=== PATIENT | male | born 1950 | race Caucasian/White ===

== ENCOUNTER → 2023-06-16 | Outpatient (CLI) | payer MEDICARE ==
[2023-06-16 16:09] LABS: Calcium 9.3 mg/dL (8.7-10.3); Carbon Dioxide 27.2 mmol/L (21.6-31.8); Chloride 103 mmol/L (96-109); Glucose 85 mg/dL (70-110); Potassium 4.8 mmol/L (3.5-5.5); Sodium 141 mmol/L (135-145)
[2023-06-16 16:25] LABS: Basophils # (A) 0.03 X 10*3/uL (0.00-0.10); Basophils % (A) 0.4 %; Eosinophils # (A) 0.12 X 10*3/uL (0.04-0.35); Eosinophils % (A) 1.5 %; HCT 51.1 % (39.6-50.0); Lymphocytes % (A) 21.7 %; MCHC 33.3 d/dL (32.0-37.0); MCV 93.2 FL (80.0-97.0); Mean Platelet Volume 10.9 FL (9.5-12.2); Monocytes # (A) 0.48 X 10*3/uL (0.20-1.00); Monocytes % (A) 6.1 %; NRBC Per 100 WBC 0 X 10*3/uL (0.00-0.01); Neutrophils # (A) 5.49 X 10*3/uL (1.80-7.70); Platelet Count 190 X 10*3/uL (140-440); RBC 5.48 X 10*6/uL (4.40-5.60); RDW 11.8 % (11.5-14.5); WBC 7.84 X 10*3/uL (4.50-10.00)
== END | disposition home or self-care (01) ==
LOC: LABPAT 11:01
PROVIDERS: ATTEND Orthopaedic Surgery Hand Surgery
DX: Z01.818 Encounter for other preprocedural examination (principal); G56.01 Carpal tunnel syndrome, right upper limb; M65.331 Trigger finger, right middle finger
CPT/HCPCS: 36415; 80048; 85025; 93005

== ENCOUNTER 2023-06-25 08:26 | Day surgery (SDC) | payer MEDICARE ==
--- NOTE | 2023-06-23 09:05 | P.HPOR ---
History of Present Illness H&P Date: 06/23/23 Subjective: This is a 72 year old male that presents today for initial evaluation regarding a year history of progressively worsening right hand paresthesias in the index, middle and ring fingers and painful locking, catching and stiffness of the right middle finger. The patient has tried bracing with only relief of their night symptoms but he notes the numbness is very easily provoked when moving the wrist and hand. He denies any inciting event or neck pain and is an avid golfer and notes his symptoms are worse after golfing. Physical Examination: RUE: AIN/PIN/Radial/Ulnar/Median motor intact. Radial/Ulnar/Median SILT. 2+/4 Radial/Ulnar pulses palpated. 5/5 APB, 5/5 FDI. Negative Finkelsteins, negative CMC grind, positive Durkan's compression. TTP over right middle finger with locking/catching. Impression: 1.) Right carpal tunnel syndrome 2.) Right middle finger trigger finger. Plan: Diagnosis and treatment options were discussed with the patient. The patient has failed conservative treatment and would like to pursue a right endoscopic vs open carpal tunnel release and right middle finger A1 mj release. Risks and benefits of surgery including bleeding, infection, damage to surrounding tissue, need for further surgery, possible need to convert to open procedure, residual numbness were discussed and the patient wished to go forward with surgery. -Bashir Puga DO Orthopedic Hand/Upper Extremity Surgeon Past Medical History Past Medical History: Osteoarthritis (OA) Additional Past Medical History / Comment(s): lower back pain. rt wrist and hand pain. History of Any Multi-Drug Resistant Organisms: None Reported Past Surgical History: Cholecystectomy, Orthopedic Surgery Additional Past Surgical History / Comment(s): colonoscopy. 2 rt knee sx. 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 lung cancer Medications and Allergies Home Medications Medication Instructions Recorded Confirmed Type Acetaminophen [Tylenol Extra 500 mg PO DAILY 06/20/23 06/20/23 History Strength] Meloxicam 7.5 mg PO DAILY PRN 06/20/23 06/20/23 History Unk Fish Oil 1 tab PO DAILY 06/20/23 06/20/23 History Unk Multiu Vitamin 1 tab PO DAILY 06/20/23 06/20/23 History Allergies Allergy/AdvReac Type Severity Reaction Status Date / Time aspirin Allergy Rash/Hives Verified 06/20/23 15:18 cephalexin [From Keflex] Allergy Rash/Hives Verified 06/20/23 15:18 codeine Allergy Rash/Hives Verified 06/20/23 15:18 cortisone Allergy Rash/Hives Verified 06/20/23 15:18 ibuprofen [From Motrin] Allergy Rash/Hives Verified 06/20/23 15:18 sulfamethoxazole Allergy Rash/Hives Verified 06/20/23 15:18 [From Bactrim] trimethoprim [From Bactrim] Allergy Rash/Hives Verified 06/20/23 15:18 Physical Examination Osteopathic Statement: *. No significant issues noted on an osteopathic structural exam other than those noted in the History and Physical/Consult.
[~2023-06-25 08:26] MED LIST: LACTATED RINGERS 1,000 ML IV SCH; LIDOCAINE 1% (10MG/ML) FOR IV START INTRADERMA PRN; ONDANSETRON 4 MG/2 ML VIAL IVP ONE; Pre Op ABX Message 1 EACH MISC MISCELLANE ONE; fentaNYL (PF) 50 MCG/ML 2 ML AMP IV PRN
[2023-06-25 09:51] VITALS: TEMP 97.2
[2023-06-25] MEDS ORDERED: MIDAZOLAM 2 MG/2 ML VIAL ONE (11:18)
[2023-06-25] MEDS ORDERED: PROPOFOL 10 MG/ML 20 ML VIAL IV ONE (11:18)
[2023-06-25] MEDS ORDERED: LIDOCAINE 1% INJ 10MG/ML (20 ML MDV) ONE (11:18)
[2023-06-25] MEDS ORDERED: fentaNYL (PF) 50 MCG/ML 2 ML AMP ONE (11:18)
[2023-06-25] MEDS ORDERED: LIDOCAINE 1% INJ 10MG/ML (20 ML MDV) SQ ONE (11:26)
[2023-06-25] MEDS ORDERED: BUPIVACAINE (PF) 0.5% 30 ML VIAL SQ ONE (11:26)
[2023-06-25] MEDS ORDERED: LIDOCAINE 2% INJ 20 MG/ML SQ ONE (11:26)
--- NOTE | 2023-06-25 11:45 | P.OP ---
Date of Procedure: 06/25/23 Preoperative Diagnosis: 1.) Right carpal tunnel syndrome 2.) Right middle finger trigger finger Postoperative Diagnosis: 1.) Right carpal tunnel syndrome 2.) Right middle finger trigger finger Procedure(s) Performed: 1.) Right endoscopic carpal tunnel release 2.) Right middle finger trigger finger A1 mj release Anesthesia: MAC Surgeon: Bashir Puga Mapper #1: Rodolfo Arango Estimated Blood Loss (ml): 0 Pathology: none sent Condition: stable Disposition: PACU Description of Procedure: This is a 72 year old male who presents today for a right endoscopic carpal tunnel release and right middle finger A1 mj release after having failed conservative treatment in the past. Risks and benefits of surgery were discussed with the patient including bleeding, damage to surrounding tissue, infection, need to convert to open procedure, need for further surgery as well as risks of anesthesia including pulmonary embolism and even and the patient wished to proceed with surgical intervention. The patients was seen in the pre-operative area by myself. Consent and H&P were completed and updated. The correct extremity was marked in the pre-operative area by myself and all other questions were answered. Operative Narrative: The patient was brought to the operating room by the department of anesthesia. They remained on the portable stretcher and a rolling hand table was brought to the side of the operative extremity. Pre-operative time out was performed indicating the correct patient, procedure and laterality. All in the room agreed. The patient was then drifted off to sleep by the department of anesthesia. MAC anesthesia was utilized and a 50:50 mixture of 1% Lidocaine and 0.5% bupivacaine was injected into the subcutaneous tissues of the palmar skin, 8ccs total. A nonsterile tourniquet was then applied to the operative extremity and the right upper extremity was then prepped and draped in normal sterile fashion. The operative extremity was the exsanguinated with an esmarch bandage and the tourniquet was inflated to 250mmHg. 15 blade scalpel was utilized to make a transverse incision on the palmar skin just ulnar to the palmaris longus tendon at the level of the distal wrist crease. Ragnell retractor was then placed radially and blunt dissection was performed to reveal the distal forearm fascia. This was lifted with fine Estrada pick ups and Littler tenotomy scissors were then used to open the forearm fascia transversely and a double skin hook was then placed. Hamate finder was placed into the carpal tunnel and then sequential sized dilators were inserted followed by the synovial elevator to separate the flexor tenosynovium from the undersurface of the transverse carpal ligament and a washboard texture was felt. The MicroAire endoscopic carpal tunnel release system gun was the then inserted into the carpal tunnel hugging the deep portion of the transverse carpal ligament in line with the base of the ring finger. Transverse fibers of the ligament were directly visualized. Pressure was applied on the palm to reveal the distal extent of the transverse carpal ligament. The blade was then deployed and the distal half of the transverse carpal ligament was released. The scope was then brought distal again and remaining transverse fibers were incised with the blade. The proximal half of the transverse carpal ligament was then divided and again the scope was advanced distal and remaining transverse fibers were incised with the blade. The radial and ulnar leaflets were directly visualized and mobile consistent with complete release. Tenotomy scissors were then utilized to release the remaining distal forearm fascia under direct visualization taking care to preserve the palmar cutaneous branch of the median nerve. Skin closure was performed with interrupted 4-0 nylon suture. Oblique incision was made at the base of the middle finger finger. Blunt dissection was taken down to the level of the A1 mj. Ragnell retractors were placed both radially and ulnarly to protect neurovascular bundles. Littler tenotomy scissors were then used to release the A1 mj from proximal to distal under direct visualization. Proximal fascial attachments were released. The tendon was then taken through range of motion and no locking or catching was appreciated. The wound was then closed with interrupted 4-0 nylon sutures in a horizontal mattress fashion. Sterile dressing was applied consisting 4x4s, Webril, and an greg bandage. Tourniquet was let down and the hand immediately was well perfused. The patient was then woken by the department of anesthesia and transferred to PACU in stable condition. Rodolfo CARMEN was present for the case in its entirety and assisted in major portions of the case and protection of vital neurovascular structures. Bashir Puga D.O. Orthopedic Hand/Upper Extremity Surgeon
[2023-06-25 11:56] VITALS: RESP 14
[2023-06-25 12:20] VITALS: BP 135/67; PULSE 68
== END 2023-06-25 12:28 | disposition home or self-care (01) ==
LOC: OR 08:26
PROVIDERS: ATTEND Orthopaedic Surgery Hand Surgery
DX: G56.01 Carpal tunnel syndrome, right upper limb (principal); M65.331 Trigger finger, right middle finger; M19.90 Unspecified osteoarthritis, unspecified site; Z98.890 Other specified postprocedural states; Z88.1 Allergy status to other antibiotic agents; Z88.6 Allergy status to analgesic agent; Z88.5 Allergy status to narcotic agent; Z88.8 Allergy status to other drugs, medicaments and biological substances; Z88.2 Allergy status to sulfonamides; Z79.1 Long term (current) use of non-steroidal anti-inflammatories (NSAID); Z79.899 Other long term (current) drug therapy
CPT/HCPCS: 29848; 26055; J2001 ×2; J2250; J2405; J3010; J2704; J0665

== ENCOUNTER → 2024-02-17 | Outpatient (CLI) | payer MEDICARE | END | disposition home or self-care (01) | LOC: LABPAT 15:40 | PROVIDERS: ATTEND Orthopaedic Surgery | DX: Z01.812 Encounter for preprocedural laboratory examination (principal); M17.12 Unilateral primary osteoarthritis, left knee; Z22.322 Carrier or suspected carrier of Methicillin resistant Staphylococcus aureus | CPT/HCPCS: 87070 ==

== ENCOUNTER 2024-03-22 05:44 | Day surgery (SDC) | payer MEDICARE ==
[~2024-03-22 05:44] MED LIST changes: -LACTATED RINGERS 1,000 ML IV SCH; -LIDOCAINE 1% (10MG/ML) FOR IV START INTRADERMA PRN; -ONDANSETRON 4 MG/2 ML VIAL IVP ONE; +TRANEXAMIC 1,000 MG/100ML-NACL 1,000 MG in SALINE 1 100ML.BAG IVPB PRN; -fentaNYL (PF) 50 MCG/ML 2 ML AMP IV PRN
[2024-03-22] MEDS: IV FLUID CONTINUATION 1,000 ML IV ONE (06:19)
--- NOTE | 2024-03-22 06:45 | HP ---
HISTORY AND PHYSICAL DATE OF SCHEDULED SURGERY: 03/22/2004. HISTORY OF PRESENT ILLNESS: Yandel Church is a 73-year-old gentleman, seen with symptomatic left knee osteoarthritis. Options for treatment were discussed. He elected to proceed with left total knee arthroplasty. Consent was obtained. Medical clearance was provided by Dr. Hemalatha Adams. PAST MEDICAL HISTORY: Hypertension. PAST SURGICAL HISTORY: Knee arthroscopy, cholecystectomy. DAILY MEDICATIONS: 1. Multivitamin. 2. Tylenol. ALLERGIES: Aspirin, Bactrim, codeine, cortisone, Keflex. SOCIAL HISTORY: Denies tobacco use. PHYSICAL EVALUATION OF THE LEFT KNEE: Range of motion is -5/6 to 120 degrees. Mild effusion. Tenderness in medial joint line. Crepitance along the medial patellofemoral compartments with range of motion. There is a genu varum deformity. Ligaments stable. Hip rotation without pain. Distal neurovascular exam is intact. IMAGING STUDIES: Radiographs of the left knee reveal severe osteoarthritic changes. IMPRESSION: Left knee osteoarthritis. PLAN: Left total knee arthroplasty. MMODL / IJN: [id number] /
[2024-03-22 06:49] VITALS: BP 168/77; PULSE 97; RESP 16; TEMP 97.7
[2024-03-22] MEDS: ONDANSETRON 4 MG/2 ML VIAL IVP STA (06:50)
[2024-03-22] MEDS: ACETAMINOPHEN TAB 500 MG TAB PO PRN (06:50)
[2024-03-22] MEDS ORDERED: LACTATED RINGERS 1,000 ML BAG IV STA (06:51)
[2024-03-22] MEDS: DEXAMETHASONE SOD PHOSPHATE 4 MG/ML 1 ML VIAL IVP STA (06:52)
[2024-03-22] MEDS: MIDAZOLAM 2 MG/2 ML VIAL IVP ONE (07:05)
[2024-03-22] MEDS ORDERED: ePHEDrine 50 MG/ML 1 ML VIAL ONE (07:25)
[2024-03-22] MEDS ORDERED: SODIUM CHLORIDE 0.9% (PF) 10 ML VIAL ONE (07:25)
[2024-03-22] MEDS ORDERED: GLYCOPYRROLATE 0.2 MG/ML 2 ML VIAL ONE (07:25)
[2024-03-22] MEDS ORDERED: WATER FOR INJECTION, STERILE 10 ML VIAL IV ONE (07:25)
[2024-03-22] MEDS ORDERED: LIDOCAINE 1% INJ 10MG/ML (20 ML MDV) ONE (07:25)
[2024-03-22] MEDS ORDERED: PROPOFOL 10 MG/ML 20 ML VIAL IV ONE (07:25)
[2024-03-22] MEDS ORDERED: TRANEXAMIC 1,000 MG/100ML-NACL PREMIX BAG ONE (07:25)
[2024-03-22] MEDS ORDERED: SUCCINYLCHOLINE CHLORIDE 200 MG/10 ML VIAL IV ONE (07:25)
[2024-03-22] MEDS ORDERED: MIDAZOLAM 2 MG/2 ML VIAL ONE (07:25)
[2024-03-22] MEDS ORDERED: ROPIVACAINE 5 MG/ML 30 ML VIAL ONE (07:25)
[2024-03-22] MEDS ORDERED: NEOSTIGMINE 1 MG/ML 10 ML VIAL ONE (07:25)
[2024-03-22] MEDS ORDERED: fentaNYL (PF) 50 MCG/ML 2 ML AMP ONE (07:25)
[2024-03-22] MEDS ORDERED: ROCURONIUM 10 MG/ML (5 ML VIAL) IV ONE (07:25)
[2024-03-22] MEDS ORDERED: LACTATED RINGERS 1,000 ML BAG ONE (07:29)
[2024-03-22] MEDS ORDERED: ceFAZolin 10 GM VIAL IVPB ONE (07:29)
[2024-03-22] MEDS ORDERED: SODIUM CHLORIDE 0.9% 100 ML BAG IV ONE (07:29)
[2024-03-22] MEDS: ceFAZolin 1,000 MG in SODIUM CHLORIDE 0.9% 1,000 ML IRRIGATION ONE (07:51)
[2024-03-22] MEDS ORDERED: HYDROmorphone 0.5 MG/0.5 ML SYRINGE ONE (10:08)
[2024-03-22] MEDS ORDERED: HYDROcodone/APAP 5-325MG 1 EACH TAB ONE (10:44)
--- NOTE | 2024-03-22 11:36 | OP ---
OPERATIVE REPORT DATE OF SERVICE : 03/22/2024 PREOPERATIVE DIAGNOSIS: Left knee osteoarthritis. POSTOPERATIVE DIAGNOSIS: Left knee osteoarthritis. PROCEDURE: Left total knee arthroplasty. ANESTHESIA: General. ESTIMATED BLOOD LOSS: 35 mL. SHIPFITTERS SUPERVISOR: NELLA Small. IMPLANTS UTILIZED: 1. DePuy Attune size 6 left cruciate-retaining cemented femur. 2. DePuy Attune size 6 cemented fixed base tibial base plate. 3. DePuy Attune size 6 cruciate retaining, fixed bearing, 5 mm polyethylene tibial insert. 4. Depuy Attune 38 mm All-polyethylene patella. INDICATIONS FOR PROCEDURE: Mr. Yandel Church is a 73-year-old gentleman seen with symptomatic left knee osteoarthritis. After having treatment options discussed, he elected to proceed with left total knee arthroplasty. DESCRIPTION OF PROCEDURE: The patient was taken to the operative suite after having undergone regional blocks by Department of Anesthesia to include adductor canal catheter and iPACK block. He was taken to the operative suite. He underwent general anesthetic by the Department of Anesthesia. He received preoperative IV antibiotics in terms of 2 g of Kefzol, and 1 g of TXA. A well-padded tourniquet was placed in the proximal left thigh and left lower extremity was prepped and draped in normal sterile orthopedic fashion. Extremity was elevated. Tourniquet was insufflated to 300. I made a standard anterior incision sharply through skin and dissected down to the extensor mechanism. A medial arthrotomy was made. The patella was everted. Knee flexed and noted severe osteoarthritic changes. I made an intramedullary drill hole to the distal femur. Distal femoral guide was now placed and distal femoral cut was made. We now placed our proximal tibial guide into position. Retractors were placed around the proximal tibia. A proximal tibial cut was made. We now placed our femoral sizing guide. Appropriate drill holes and pins were placed. We sized it to a size 6. The 4-in-1 cutting block was now placed over the pins and appropriate cuts were made of the distal femur. We now made appropriate box cut for our femoral component. We now removed any residual meniscal tissue, performed a medial release. I now placed trial components in position. I took the knee through full range of motion, had good range of motion with good stability. We now marked off the appropriate rotation of the tibia, drilled lug nut holes through distal femoral component. Trial components were now removed. We now placed our tibial guide along the proximal tibia and appropriate keel punch holes were made. We now irrigated the wound out copiously with mechanical irrigation. Electrocautery was used along the posterior capsular area. We now irrigated the wound out via pulse lavage mechanical irrigation. The methylmethacrylate was now mixed on the back table. All appropriate components were opened. Once the methylmethacrylate had begun to get doughy, we placed along the proximal tibia and along the tibial component, we tapped down methylmethacrylate and I inserted my tibial polyethylene component. We now cemented down the femoral component, removing excess methylmethacrylate. I took the knee through full extension, back into flexion, making sure we removed excess methylmethacrylate. We now cemented down our patellar component and secured with a towel clamp. The knee was held in full extension with the towel clamp in position until almost perfectly it had hardened. Once it hardened, the towel clamp was removed. The tourniquet was released. We used electrocautery to achieve additional hemostasis. The wound was irrigated. I took the knee through range of motion with good stability. The extensor mechanism was now repaired with #1 Ethibond. Subcutaneous soft tissue repaired with 2-0 Vicryl. The skin was repaired with a running subcuticular suture augmented with skin glue. Sterile dressings were applied followed by a loose Sai bandage. The patient was awakened, transferred to bed in recovery and stable condition having tolerated the procedure well. NELLA Small assisted in all aspects of this complex procedure. MMODL / IJN: [id number] /
--- NOTE | 2024-04-09 15:51 | OP ---
OPERATIVE REPORT DATE OF SERVICE : 03/22/2024 PREOPERATIVE DIAGNOSIS: Left knee osteoarthritis. POSTOPERATIVE DIAGNOSIS: Left knee osteoarthritis. PROCEDURE PERFORMED: Left total knee arthroplasty. TALLOW MAKER: NELLA Landa. ANESTHESIA: General. ESTIMATED BLOOD LOSS: 35 mL. IMPLANTS UTILIZED: 1. DePuy ATTUNE size 6 left cruciate-retaining femur. 2. DePuy ATTUNE size 6 cemented tibial baseplate. 3. DePuy ATTUNE size 6 cruciate retaining, fixed bearing, 5 mm polyethylene tibial insert. 4. DePuy ATTUNE 38 mm all-polyethylene cemented patella. INDICATIONS: A 73-year-old gentleman seen with symptomatic left knee osteoarthritis. After having treatment options discussed, he elected to proceed with left total knee arthroplasty. Consent regarding the procedure was obtained. DESCRIPTION OF PROCEDURE: The patient was taken to the operative suite, underwent a general anesthetic by the Department of Anesthesia. He received preoperative IV antibiotics and TXA. A well- padded tourniquet was placed in proximal left thigh. The left lower extremity was prepped and draped in normal sterile orthopedic fashion. The extremity was elevated, tourniquet was insufflated to 300. I now made a standard anterior incision sharply through the skin and dissected down to the extensor mechanism. A medial arthrotomy was performed. The knee was flexed and the patella was everted. I noted advanced osteoarthritis. Retractors were positioned. Distal femoral cutting jig was positioned. Distal femoral cut was made. We now placed our proximal tibial cutting jig in the position and a proximal tibial cut was made. We placed our femoral sizing guide and then placed a 4-in-1 block off the distal femur and created our appropriate 4- in-1 cuts off the distal femur. I now removed any residual meniscal tissue and performed appropriate releases. Trial components were now placed into the femur and tibia and polyethylene trial component. The knee was taken through a full range of motion with good range of motion and good overall stability. The patella was everted, and I made a flush cut with patella quad tendon. We now trialed our appropriate size patellar component, tracked nicely. Appropriate drill holes were made through the patella and the distal femur lug holes. We now removed all trial components. We created our keel punch hole through the proximal tibia. We now irrigated the wound out copiously with mechanical irrigation, dried it out thoroughly. We now cemented down our tibial tray, removing any excess methylmethacrylate, inserted our tibial polyethylene component, I now cemented down the femoral component, removing excess methylmethacrylate. I took the knee into full extension back into flexion, making sure I removed any excess methylmethacrylate. We then cemented now our patellar component, used a clamp to secure it. We now held in position while the methylmethacrylate had hardened. Once it hardened, the patellar clamp was removed. We took the knee through range of motion, noted good range of motion and good stability. The tourniquet was released. I achieved additional hemostasis via electrocautery. I now irrigated the wound out copiously with mechanical irrigation. The extensor mechanism was repaired with #1 Ethibond. Subcutaneous and soft tissues were repaired with Vicryl followed by skin repair using subcuticular suture augmented with skin glue. Sterile dressings were applied, followed by a loose Sai bandage. The patient was awakened and transferred to the recovery in stable condition. NELLA Landa, assisted in all aspects of this complex procedure. MMTERRYL / ARPANN: [id number] /
--- NOTE | 2024-04-28 15:19 | XR ---
EXAMINATION TYPE: XR knee limited LT DATE OF EXAM: 04/04/2024 COMPARISON: No comparison available on downtime PACS. HISTORY: Postop knee replacement TECHNIQUE: 2 view left knee FINDINGS: Tibial and femoral components have been placed. Postsurgical soft tissue changes are eviden t. No acute fractures or dislocations evident. IMPRESSION: 1. No acute acute fracture post left knee replacement
== END 2024-03-22 13:13 ==
LOC: OR 05:44
PROVIDERS: ATTEND Orthopaedic Surgery
DX: M17.12 Unilateral primary osteoarthritis, left knee (principal); I10 Essential (primary) hypertension; Z88.1 Allergy status to other antibiotic agents; Z88.3 Allergy status to other anti-infective agents; Z88.5 Allergy status to narcotic agent; Z88.6 Allergy status to analgesic agent; Z88.8 Allergy status to other drugs, medicaments and biological substances; Z91.040 Latex allergy status; Z79.899 Other long term (current) drug therapy; Z90.49 Acquired absence of other specified parts of digestive tract
CPT/HCPCS: 64448; 64999